=== PATIENT | female | born 1980 ===

== ENCOUNTER 2022-08-17 12:48 | Outpatient (CLI) | payer OTHER | END 2022-08-17 12:49 | disposition home or self-care (01) | LOC: LAB 12:48 | PROVIDERS: ATTEND Internal Medicine Hematology & Oncology | DX: D50.8 Other iron deficiency anemias (principal); R79.9 Abnormal finding of blood chemistry, unspecified; I10 Essential (primary) hypertension; R74.02 Elevation of levels of lactic acid dehydrogenase [LDH]; K76.89 Other specified diseases of liver; E55.9 Vitamin D deficiency, unspecified; D51.1 Vitamin B12 deficiency anemia due to selective vitamin B12 malabsorption with proteinuria; D51.0 Vitamin B12 deficiency anemia due to intrinsic factor deficiency; B20 Human immunodeficiency virus [HIV] disease; B17.9 Acute viral hepatitis, unspecified; Z11.59 Encounter for screening for other viral diseases; B27.90 Infectious mononucleosis, unspecified without complication; E03.8 Other specified hypothyroidism; E06.3 Autoimmune thyroiditis; M32.9 Systemic lupus erythematosus, unspecified; M06.9 Rheumatoid arthritis, unspecified ==

== ENCOUNTER → 2022-11-05 08:57 | Outpatient (CLI) | payer OTHER | END | disposition home or self-care (01) | LOC: LAB 08:57 | PROVIDERS: ATTEND Internal Medicine Hematology & Oncology | DX: D50.8 Other iron deficiency anemias (principal); R79.9 Abnormal finding of blood chemistry, unspecified; I10 Essential (primary) hypertension; R74.02 Elevation of levels of lactic acid dehydrogenase [LDH]; K76.89 Other specified diseases of liver; D72.818 Other decreased white blood cell count; D69.6 Thrombocytopenia, unspecified ==

== ENCOUNTER 2022-12-03 09:22 | Outpatient (CLI) | payer OTHER | END 2022-12-03 09:25 | disposition home or self-care (01) | LOC: SONOGRAMA 09:22 | PROVIDERS: ATTEND Pathology Anatomic Pathology & Clinical Pathology | DX: D34 Benign neoplasm of thyroid gland (principal); E04.9 Nontoxic goiter, unspecified ==

== ENCOUNTER → 2022-12-29 | Outpatient (CLI) | payer OTHER | END | disposition home or self-care (01) | LOC: NUCLEAR 07:14 | PROVIDERS: ATTEND Specialist | DX: M94.0 Chondrocostal junction syndrome [Tietze] (principal); M25.59 Pain in other specified joint | CPT/HCPCS: 78315; A9503 ==

== ENCOUNTER 2023-12-22 10:42 | Outpatient (CLI) | payer OTHER | END 2023-12-22 10:55 | disposition home or self-care (01) | LOC: MRI 10:42 | DX: R10.2 Pelvic and perineal pain (principal) | CPT/HCPCS: 72196; Q9965 ==

== ENCOUNTER 2024-06-14 09:27 | Outpatient (CLI) | payer OTHER | END 2024-06-14 09:33 | disposition home or self-care (01) | LOC: MRI 09:27 | DX: D32.0 Benign neoplasm of cerebral meninges (principal) | CPT/HCPCS: 70553; Q9965 ==